=== PATIENT | female | born 1975 | race Caucasian/White ===

== ENCOUNTER 2019-01-17 17:06 | Emergency (ER) | payer SELFPAY ==
[~2019-01-17] VITALS: Ht 167.6 cm; Wt 63.5 kg
--- NOTE | 2019-01-17 17:16 | NUR ---
Patient is awake, respiration:easy. Patient is refusing to talk to our ER doctor. Patient is refusing all interventions. MD is aware. Patient keeps saying "I will pradeep you. You do not have my consent. " [email or web address] [email or web address]. Nursing route delivery supervisor notified.
--- NOTE | 2019-01-17 17:18 | NUR ---
Nursing stevedoring supervisor Hyd is at bedside.
--- NOTE | 2019-01-17 17:24 | NUR ---
Patient is not [email or web address]@this time per MD. IV line started. Blood was drawn & sent to lab.
--- NOTE | 2019-01-17 17:30 | NUR ---
Soft restraints x2 (bilateral wrists) are on for medical reasons. Bedpan offered. Comfort & safety measures maintained.
[2019-01-17] MEDS ORDERED: LORAZEPAM 2 MG/1 ML VIAL ONE (17:55)
[2019-01-17] MEDS ORDERED: LORAZEPAM 2 MG/1 ML VIAL IV ONE (18:00)
--- NOTE | 2019-01-17 19:00 | NUR ---
HAND OFF RECEIVED FROM OUTGOING DAY SHIFT RN PT IS ASLEEP,ROUSABLE WITH SOME LETHARGY, WITH SIDERAILSX2 UP, BED AT LOWEST POSITION SUPINE AT [facility], WITH 2PT RESTRAINTS (MEDICAL), REASSESSED Q2 PT NAD WITH G20 LEFT UPPER ARM SALINE LOCK INTACT MONITORED ACCORDINGLY
--- NOTE | 2019-01-17 19:30 | NUR ---
PT SOFT RESTRAINTS(MEDICAL)REASSESSED W/ VISUAL CHECK Q15 PT ON SUPINE SHIFTED TO RIGHT LUMBAR PT NAD,IS ASLEEP BUT AROUSABLE. SIDERAILSX2 UP, BED AT LOWEST POSITION KEPT WARM COMFORTABLE AND SAFE MONITORED ACCORDINGLY
--- NOTE | 2019-01-17 20:29 | NUR ---
PT SOFT RESTRAINTS(MEDICAL)REASSESSED W/ VISUAL CHECK Q15 PT ON RIGHT LUMBAR SHIFTED TO SUPINE PT NAD,IS ASLEEP BUT AROUSABLE. SIDERAILSX2 UP, BED AT LOWEST POSITION KEPT WARM COMFORTABLE AND SAFE MONITORED ACCORDINGLY
--- NOTE | 2019-01-17 20:53 | NUR ---
TRIAL OF 1PT. RESTRAINT AT L WRIST PT IS ASLEEP, NAD, SIDERAILSX2 UP, BED AT LOWEST POSITION REASSESSED WITH VISUAL CHECKS Q15 PT ON SUPINE SHIFTED TO LEF LATERAL RECUMBENT
--- NOTE | 2019-01-17 21:50 | NUR ---
TRIAL OF 1PT. RESTRAINT AT L WRIST, PT IS ASLEEP BUT ROUSABLE, NAD, SIDERAILSX2 UP, BED AT LOWEST POSITION REASSESSED WITH VISUAL CHECKS Q15 PT ON L LATERAL SHIFTED TO SUPINE
--- NOTE | 2019-01-17 22:00 | NUR ---
TRIAL OF NO RESTRAINTS PT IS AWAKE AND ABLE TO SPEAK CLEARLY AND COMPLETE SENTENCES SIDERAILSX2 UP, BED AT LOWEST POSITION CALM AND COMPLIANT
--- NOTE | 2019-01-17 22:24 | NUR ---
PT IS AWAKE, PT REMOVED IV SALINE LOCK ON LEFT UPPER ARM PT ABLE TO TOLERATE WATER, ABLE TO AMBULATE SAFELY TO BATHROOM
--- NOTE | 2019-01-17 22:38 | NUR ---
Patient discharged to home in stable conditon. Written and verbal after care instructions given. Patient verbalizes understanding of instructions. DENIES SI/HI CONCERNS ALL BELONGINGS WITH PT AMBULATORY W/ STABLE GAIT
[2019-01-17 22:44] VITALS: BP 133/67
== END 2019-01-17 22:45 | disposition home or self-care (01) ==
LOC: ER 17:08
DX: F10.129 Alcohol abuse with intoxication, unspecified (principal); Y90.8 Blood alcohol level of 240 mg/100 ml or more
CPT/HCPCS: 36415; 84702; 96374; 99283; G0480; J2060; A4663